=== PATIENT | female | born 1930 | race Caucasian/White ===

== ENCOUNTER → 2017-06-07 | Outpatient (CLI) | payer OTHER | LOC: CIMAGING 14:29 | PROVIDERS: ATTEND Family Medicine | DX: M25.572 Pain in left ankle and joints of left foot (principal) | CPT/HCPCS: 73610-PO ==

== ENCOUNTER → 2018-05-09 | Outpatient (CLI) | payer OTHER | LOC: CIMAGING 12:01 | PROVIDERS: ATTEND Family Medicine | DX: S80.01XA Contusion of right knee, initial encounter (principal); M89.8X5 Other specified disorders of bone, thigh | CPT/HCPCS: 73562-PO ==